=== PATIENT | male | born 1990 | race Asian ===

== ENCOUNTER 2017-05-02 04:30 | Emergency (ER) | payer BC ==
[~2017-05-02] VITALS: Ht 167.6 cm; Wt 72.7 kg
[2017-05-02] MEDS ORDERED: EMTR1TAB15 PO (04:41)
[2017-05-02] MEDS ORDERED: PROPARACAINE HCL 0.5% 15 ML OPHTHALMIC SOLUTION OS ONE (06:00)
[2017-05-02 06:55] VITALS: BP 132/77
== END 2017-05-02 06:57 | disposition home or self-care (01) ==
LOC: EMS 04:31
DX: S05.02XA Injury of conjunctiva and corneal abrasion without foreign body, left eye, initial encounter (principal); F17.210 Nicotine dependence, cigarettes, uncomplicated; X58.XXXA Exposure to other specified factors, initial encounter; Y93.89 Activity, other specified; Y92.89 Other specified places as the place of occurrence of the external cause; Y99.8 Other external cause status
CPT/HCPCS: 99283

== ENCOUNTER 2017-12-13 21:09 | Emergency (ER) | payer BC ==
[~2017-12-13] VITALS: Ht 167.6 cm; Wt 75.0 kg
[~2017-12-13 21:09] MED LIST: EMTR1TAB15 PO
[2017-12-13] MEDS ORDERED: DEXAMETHASONE SOD PHOS 4 MG/ML 5 ML VIAL IVP ONE (22:00)
[2017-12-13] MEDS ORDERED: METOCLOPRAMIDE HCL 5 MG/ML 2 ML VIAL IVP ONE (22:00)
[2017-12-13] MEDS ORDERED: DiphenhydrAMINE HCL 50 MG/ML VIAL IVP ONE (22:00)
[2017-12-13] MEDS ORDERED: SODIUM CHLORIDE 0.9% 1,000 ML IV ONE (22:00)
[2017-12-14 00:07] VITALS: BP 123/71
== END 2017-12-14 00:10 | disposition home or self-care (01) ==
LOC: EMS 21:09
DX: R51 Headache (principal); Z87.891 Personal history of nicotine dependence
CPT/HCPCS: 70450; 96361; 96374; 96375; 99285; J1100; J1200; J2765; J7030